=== PATIENT | female | born 1985 | race Hispanic/Latino ===

== ENCOUNTER 2019-10-13 12:24 | Emergency (ER) | payer SELFPAY ==
[~2019-10-13 12:24] MED LIST: Dextrose 5 %-0.45 % NaCl 1,000 ML ONE; Lidocaine Viscous Sol 2% 15 ml UD Cup ONE; Mag-Al Plus 1200 MG/1200 MG/120 MG/30 ML UDCUP ONE; Morphine 2 MG/ML SYRINGE ONE; Morphine 4 MG/ML VIAL ONE; Ondansetron PF 4 MG/2 ML Vial ONE
[2019-10-13] MEDS ORDERED: Levofloxacin 500 mg/D5W 100 ml Premix Bag ONE (12:29)
[2019-10-13 13:02] LABS: BHCG - Serum Negative (NEGATIVE); Bilirubin Negative (Negative); Blood, Urine Negative (Negative); Clarity Clear (Clear); Glucose, Urine (Dipstick) Negative (Negative); Leukocyte Negative (Negative); Nitrite Negative (Negative); Pregs Control Bar Appear? YES (CONTROL BAR); Protein, Urine (Dipstick) Negative (Neg-Trace); Urobilinogen 0.2 mg/dL (Less than 2)
[2019-10-13 13:04] LABS: ALT (SGPT) 53 U/L (8-55); AST (SGOT) 91 U/L (5-34); Albumin 4.5 g/dL (3.5-5.0); Alkaline Phosphatase 94 U/L (40-110); Anion Gap 14 mmol/L (10-20); BUN (Urea Nitrogen) 12 mg/dL (7.0-18.7); Bilirubin, Total 0.3 mg/dL (0.2-1.2); Calc. Creatinine Clearance 0 mL/min (70-130); Calcium 9.3 mg/dL (7.8-10.44); Carbon Dioxide 21 mmol/L (22-29); Chloride 107 mmol/L (98-107); Estimated GFR-MDRD Greater than 90; Globulin 2.8 g/dL (2.4-3.5); Glucose 97 mg/dL (70-105); Potassium 3.7 mmol/L (3.5-5.1); Protein, Total 7.3 g/dL (6.0-8.3); Sodium 138 mmol/L (136-145)
[2019-10-13 13:05] LABS: Lipase 27 U/L (8-78); Mean Corpuscular Hemoglobin 19.5 pg (27.0-31.0); Mean Corpuscular Volume 64.6 fL (78.0-98.0); Red Blood Cell (RBC) Count 4.12 mill/uL (4.20-5.40); White Blood Cell (WBC) Count 17.2 thou/uL (4.8-10.8)
[2019-10-13 13:06] LABS: #Basophils 0.1 thou/uL (0.0-0.2); #Eosinphils 0.6 thou/uL (0.0-0.7); #Lymphocytes 2.1 thou/uL (1.20-3.40); #Monocytes 0.9 thou/uL (0.11-0.59); #Neutrophils 13.6 thou/uL (1.40-6.50); %Basophils 0.8 % (0.0-1.0); %Eosinophils 3.2 % (0.0-10.0); %Lymphocytes 12.1 % (21.0-51.0); %Monocytes 5.1 % (0.0-10.0); %Neutrophils 78.8 % (42.0-75.0); Mean Corpuscular HGB CONC 30.2 g/dL (32.0-36.0); Mean Platelet Volume 6.4 fL (7.4-10.4); Platelet Count 571 thou/uL (130-400); RBC Distribution Width 15.7 % (11.5-14.5)
--- NOTE | 2019-10-13 14:20 | RAD ---
PA AND LATERAL CHEST: HISTORY: Chest pain. FINDINGS: The heart size is normal. The lungs are well expanded without focal areas of consolidation, pneumotho races or pleural effusions. IMPRESSION: No acute process. POS: [facility]
--- NOTE | 2019-10-13 15:44 | ULT ---
RIGHT UPPER QUADRANT ULTRASOUND: 10/13/19 INDICATION: Severe right upper quadrant abdominal pain. FINDINGS: There is a prominent amount of gallbladder sludge with suspected tiny stones. There is gallbladder wa ll thickening. There is a positive sonographic Nettles's sign. No pericholecystic fluid is evident. Ga llbladder is mildly distended. The common bile duct is upper limits of normal measuring 6.2 mm. The d istal aspect of the common bile duct is not well seen due to overlying bowel gas. The visualized aspe cts of the pancreas are unremarkable appearing. The visualized aspects of the liver are normal appear ing. The right kidney measures 9.8 x 5 x 3.6 cm. IMPRESSION: 1. Prominent layered sludge and tiny stones within the gallbladder with mild distention of the g allbladder and gallbladder wall thickening. There is also report of a positive sonographic Nettles's s ign. Findings are suspicious for acute calculus cholecystitis. 2. Prominence of the extrahepatic bile duct is suspicious for a mild distal obstructing process possibly related to distal sludge within the common bile duct. 3. Surgical consultation is recommended. 4. Findings were called to Dr. Hernandez at 12:07 p.m. on 10/13/19. Code CR POS: OFF
== END 2019-10-13 12:57 | disposition short-term general hospital (02) ==
LOC: NAV ERS 12:24
DX: K80.00 Calculus of gallbladder with acute cholecystitis without obstruction (principal); D64.9 Anemia, unspecified; D72.829 Elevated white blood cell count, unspecified; D47.3 Essential (hemorrhagic) thrombocythemia; F19.10 Other psychoactive substance abuse, uncomplicated; F17.210 Nicotine dependence, cigarettes, uncomplicated
CPT/HCPCS: 71046; 76705; 80053; 81003; 83690; 84484; 84703; 85025; 87804; 96374; 96375; 96376; J1956; J2270; J2405; J7042

== ENCOUNTER 2019-10-14 08:04 | Emergency (ER) | payer SELFPAY ==
[2019-10-14] MEDS ORDERED: Lidocaine 1% (PF) 30 ML VIAL ONE (08:43)
== END 2019-10-14 09:30 | disposition home or self-care (01) ==
LOC: NAV ERS 08:04
DX: T81.31XA Disruption of external operation (surgical) wound, not elsewhere classified, initial encounter (principal); F41.9 Anxiety disorder, unspecified; F31.9 Bipolar disorder, unspecified; F20.9 Schizophrenia, unspecified; F17.210 Nicotine dependence, cigarettes, uncomplicated
CPT/HCPCS: 12001; J2001